=== PATIENT | male | born 1995 | race Caucasian/White ===

== ENCOUNTER 2023-10-30 19:18 | Inpatient (IN) | payer SELFPAY ==
[~2023-10-30] VITALS: Ht 165.1 cm; Wt 59.0 kg
[2023-10-30 19:21] VITALS: O2SAT 100
[2023-10-30] MEDS: PANTOPRAZOLE SODIUM 40 MG/VIAL IV STA (20:12)
[2023-10-30] MEDS: SODIUM CHLORIDE 0.9% 1,000 ML IV ONE (20:15)
[2023-10-30 20:51] LABS: BASOPHILS % 0.2 % (0.0-2.0); DIFFERENTIAL COMMENT 0; EOSINOPHILS % 0.1 % (0.0-5.0); HEMATOCRIT. 39.5 % (42.0-52.0); HEMOGLOBIN. 13.4 g/dL (14.0-18.0); LYMPHOCYTES % 9.4 % (20.0-50.0); MEAN CORPUSCULAR HEMOGLOBIN 27.3 pg (28.0-32.0); MEAN CORPUSCULAR VOLUME 80.4 fL (80.0-94.0); MEAN PLATELET VOLUME 8.4 fl (7.4-10.4); MONOCYTES % 12.1 % (2.0-8.0); NEUTROPHILS % 78.2 % (40.0-76.0); PLATELET 250 x1000/uL (130-400); RED BLOOD CELL COUNT 4.92 mill/uL (4.7-6.1); RED CELL DISTRIBUTION WIDTH 14.1 % (11.6-14.6); WHITE BLOOD COUNT 8.9 x1000/uL (4.5-11.0)
[2023-10-30 20:54] LABS: CHLORIDE 96 mEq/L (98-107); POTASSIUM 3.5 mEq/L (3.5-5.1); SODIUM 129 mEq/L (136-145)
[2023-10-30 20:55] LABS: CALCIUM 8.7 mg/dL (8.7-10.4); CARBON DIOXIDE 28 mEq/L (21-32)
[2023-10-30 20:59] LABS: INR 0.9; PROTHROMBIN TIME 10.4 sec (9.6-11.0)
[2023-10-30 21:00] LABS: CREATININE 0.7 mg/dL (0.6-1.3); GLUCOSE 123 mg/dL (70-105); UREA NITROGEN BLOOD 9 mg/dL (9-23)
[2023-10-30 21:02] LABS: ALANINE AMINOTRANSFERASE 9 IU/L (10-49); ALBUMIN 4.1 g/dL (3.2-4.8); ASPARTATE AMINOTRANSFERASE 19 IU/L (<34); ETHANOL BLOOD < 10 mg/dL (<10); TROPONIN I HIGH SENSITIVITY < 4 ng/L (3.0-53)
[2023-10-30 21:03] LABS: BILIRUBIN DIRECT < 0.1 mg/dL (<=3.0); BILIRUBIN TOTAL 0.3 mg/dL (0.1-1.0); PROTEIN TOTAL 6.4 g/dL (6.0-8.3)
[2023-10-30] MEDS: KETOROLAC 30MG/ML VIAL IV ONE (22:00)
[2023-10-31] MEDS: METHYLPREDNISOLONE SOD SUCC 125MG/2ML (ACT-O-VIAL) IV ONE (01:30)
[2023-10-31] MEDS: PIPERACILLIN/TAZO 3.375G/50ML 50 ML IV STA (01:48)
[2023-10-31] MEDS: METRONIDAZOLE 500 MG PREMIX 100 ML IV ONE (02:00)
[2023-10-31 07:35] VITALS: BP 126/16; PULSE 65; RESP 16; TEMP 97.7
[2023-10-31] MEDS: IOHEXOL-300 100 ML BOTTLE ONE (10:45)
[2023-10-31] MEDS: MORPHINE SULFATE 4 MG/ML INJ (FOR IV/IM USE) IV ONE (11:11)
[2023-10-31] MEDS: ONDANSETRON HCL 4MG/2ML INJ IV ONE (11:11)
[2023-10-31] MEDS: DIPHENHYDRAMINE 50MG/ML VIAL IV ONE (11:11)
== END 2023-10-31 14:47 | disposition home or self-care (01) | DRG 249 ==
LOC: ER 19:18 → 5WST 10-31 02:04 → EDBEDREQ 10-31 02:06
PROVIDERS: ADMIT Internal Medicine; ATTEND Internal Medicine
DX: K52.9 Noninfective gastroenteritis and colitis, unspecified (principal); F15.90 Other stimulant use, unspecified, uncomplicated; F17.200 Nicotine dependence, unspecified, uncomplicated
CPT/HCPCS: 36415; 71045; 74177; 80048; 80076; 80320; 83605; 84484; 85025; 86850; 86900; 99291; J3490; J7030; Q9967; G0480